=== PATIENT | male | born 1995 | race Caucasian/White ===

== ENCOUNTER 2018-05-27 20:07 | Emergency (ER) | payer OTHER ==
--- NOTE | 2018-05-27 21:00 | ED Physician Documentation ---
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 He was lifting something heavy at work this evening and felt a pop in the left shoulder. Relatively painless at rest but hurts to abduct. No other injuries.) Review of Systems Constitutional: denies: Fever, Chills, Myalgias Cardiac: denies: Chest pain / pressure, Palpitations Respiratory: denies: Dyspnea, Cough PD PAST MEDICAL HISTORY - Past Medical History Past Medical History: No - Past Surgical History Past Surgical History: Yes HEENT: Tonsil/Adenoidectomy - Present Medications Home Medications: Ambulatory Orders Medication Instructions Recorded Confirmed No Known Home Medications 05/27/18 05/27/18 - Allergies Allergies/Adverse Reactions: Allergies Allergy/AdvReac Type Severity Reaction Status Date / Time No Known Drug Allergies Allergy Verified 05/27/18 20:27 - Social History Does the pt smoke?: Yes Smoking Status: Current every day smoker Does the pt drink ETOH?: Yes ETOH Use: Beer Does the pt have substance abuse?: No - Immunizations Immunizations are current?: Yes - POLST Patient has POLST: No PD ED PE NORMAL - Vitals Vital signs reviewed: Yes - General General: Alert and oriented X 3, No acute distress - Extremities Extremities: Other (Left shoulder is nontender without deformity. He can abduct to about 90 degrees actively and does better passively. Positive supraspinatus testing.) - Neuro Neuro: Alert and oriented X 3, Normal speech Results - Vitals Vitals: Vital Signs - 24 hr 05/27/18 20:20 Temperature 37.2 C Heart Rate 81 Respiratory 16 Rate Blood Pressure 142/84 H O2 Saturation 100 Oxygen O2 Source Room air - Rads (name of study) 3v L shoulder Radiology: EMP read contemporaneously (normal) PD MEDICAL DECISION MAKING - ED course ED course: 23-year-old gentleman presents with a history and physical exam consistent with supraspinatus strain but not tear. He was placed in a sling but advised only use this for a couple of days and do exercises to maintain shoulder mobility [place] Departure - Departure Disposition: 01 Home, Self Care Clinical Impression: Strain of left rotator cuff capsule Qualifiers: Encounter type: initial encounter Qualified Code(s): S46.012A - Strain of muscle(s) and tendon(s) of the rotator cuff of left shoulder, initial encounter Condition: Good Record reviewed to determine appropriate education?: Yes Instructions: ED Tendinitis Rotator Cuff Comments: Ibuprofen as needed for pain, you can wear the sling at work but at home remember to do the exercises I showed you several times a day to maintain range of motion in the shoulder joint. [place] Forms: Activity restrictions
--- NOTE | 2018-05-27 21:35 | XRAY Report ---
Reason: shoulder pain Procedure Date: 05/27/2018 Accession Number: [id number] / [id number] Procedure: XR - Shoulder 3 View LT CPT Code: FULL RESULT: EXAM: LEFT SHOULDER RADIOGRAPHY EXAM DATE: 05/27/2018 09:17 PM. CLINICAL HISTORY: Shoulder pain. COMPARISON: None. TECHNIQUE: 3 views. FINDINGS: Bones: No acute fracture. Joints: The glenohumeral and acromioclavicular joints are preserved. Soft tissues: Unremarkable. IMPRESSION: Negative shoulder radiography. [facility]
[2018-05-27 21:44] VITALS: BP 124/90
== END 2018-05-27 21:47 | disposition home or self-care (01) ==
LOC: ED 20:07
DX: F17.200 Nicotine dependence, unspecified, uncomplicated (principal); S46.012A Strain of muscle(s) and tendon(s) of the rotator cuff of left shoulder, initial encounter; X50.0XXA Overexertion from strenuous movement or load, initial encounter; Y93.89 Activity, other specified; Y92.138 Other place on military base as the place of occurrence of the external cause; Y99.1 Military activity
CPT/HCPCS: 99282; 99283